=== PATIENT | female | born 1970 | race Two or more races ===

== ENCOUNTER 2023-07-14 05:27 | Emergency (ER) | payer MEDICAID, OTHER ==
[~2023-07-14] VITALS: Ht 175.3 cm; Wt 81.6 kg
[2023-07-14] MEDS ORDERED: diphenhydrAMINE HCL 50 MG/ML VIAL ONE (06:17)
[2023-07-14] MEDS ORDERED: PROCHLORPERAZINE EDISYLATE 10 MG/2 ML VIAL ONE ×2 (06:18→06:20)
[2023-07-14] MEDS ORDERED: ACETAMINOPHEN ES 500 MG TABLET ONE (06:20)
[2023-07-14] MEDS: IV NS 0.9% 1,000 ML BAG IV ONE (06:42)
[2023-07-14] MEDS: PROCHLORPERAZINE EDISYLATE 10 MG/2 ML VIAL IVP ONE (06:42)
[2023-07-14] MEDS: ACETAMINOPHEN ES 500 MG TABLET PO ONE (06:42)
[2023-07-14] MEDS: diphenhydrAMINE HCL 50 MG/ML VIAL IV ONE (06:42)
[2023-07-14 09:43] VITALS: BP 110/66; TEMP 98.6; O2SAT 95
== END 2023-07-14 09:44 ==
LOC: ER 05:32
DX: R51.9 Headache, unspecified (principal); D49.6 Neoplasm of unspecified behavior of brain
CPT/HCPCS: 99285; 96374; 70450; 96361; 96375; J0780 ×2; J1200

== ENCOUNTER 2023-07-20 10:07 | Emergency (ER) | payer MEDICAID ==
[~2023-07-20] VITALS: Ht 165.1 cm; Wt 74.4 kg
[2023-07-20 10:32] VITALS: BP 120/81; TEMP 98.5; O2SAT 100
[2023-07-20] MEDS ORDERED: ONDANSETRON HCL/PF 4 MG/2 ML VIAL ONE (10:42)
[2023-07-20] MEDS ORDERED: MORPHINE SULFATE INJ 4 MG/ML DISP.SYRIN ONE (10:42)
[2023-07-20] MEDS: MORPHINE SULFATE INJ 2 MG/ML DISP.SYRIN IV ONE (10:44)
[2023-07-20] MEDS: ONDANSETRON HCL/PF 4 MG/2 ML VIAL IV ONE (10:44)
== END 2023-07-20 13:49 ==
LOC: ER 10:29
DX: I82.401 Acute embolism and thrombosis of unspecified deep veins of right lower extremity (principal)
CPT/HCPCS: 99284; 96374; 96375; J2270; J2405

== ENCOUNTER 2023-11-04 12:35 | Emergency (ER) | payer MEDICAID ==
[~2023-11-04] VITALS: Ht 165.1 cm; Wt 72.6 kg
[2023-11-04] MEDS ORDERED: ONDANSETRON HCL/PF 4 MG/2 ML VIAL ONE (13:35)
[2023-11-04] MEDS: ONDANSETRON HCL/PF 4 MG/2 ML VIAL IVP ONE (13:41)
[2023-11-04] MEDS: IV NS 0.9% 1,000 ML BAG IV ONE ×2 (13:41→15:53)
[2023-11-04 13:50] LABS: HEMOGLOBIN 14.8 g/dL (11.5-14.8); LYMPHOCYTES # (AUTO) 1.3 K/uL (0.8-4.8); MONOCYTES # (AUTO) 0.3 K/uL (0.1-1.30); NEUTROPHILS % (AUTO) 73.2 % (43.0-81.0); WHITE BLOOD COUNT (AUTO) 6.2 K/uL (4.3-11.0)
[2023-11-04 13:54] LABS: BASOPHILS % (AUTO) 0.1 % (0.0-2.0); EOSINOPHILS % (AUTO) 0.3 % (0.0-6.0); HEMATOCRIT 42 % (33-45); LYMPHOCYTES % (AUTO) 21.2 % (20.0-44.0); MEAN CORPUSCULAR HEMOGLOBIN 32 PG (26.0-33.0); MEAN CORPUSCULAR HGB CONC 35 g/dl (31.0-36.0); MEAN CORPUSCULAR VOLUME 92 fL (82-100); MONOCYTES % (AUTO) 5.2 % (2.0-12.0); NEUTROPHILS # (AUTO) 4.5 K/uL (1.8-8.9); PLATELET COUNT (AUTO) 173 K/uL (150-450); RED BLOOD CELL COUNT(AUTO) 4.61 MIL/uL (4.0-5.2); RED CELL DISTRIBUTION WIDTH 16.4 % (11.5-15.0)
[2023-11-04 14:12] LABS: CALCIUM, SERUM 9.1 mg/dL (8.5-10.1); CARBON DIOXIDE 28 mmol/L (21-32); CHLORIDE 94 mmol/L (98-107); CREATININE 0.4 mg/dL (0.6-1.3); GLUCOSE 108 mg/dL (74-106); POTASSIUM 3.7 mmol/L (3.5-5.1); SODIUM SERUM 132 mmol/L (136-145); UREA NITROGEN, BLOOD 6 mg/dL (7-18)
[2023-11-04 14:13] LABS: SERUM AMMONIA 26 umol/L (11-32)
[2023-11-04 14:20] LABS: LACTIC ACID 1.8 mmol/L (0.4-2.0)
[2023-11-04 14:23] LABS: APPEARANCE,URINE TURBID (CLEAR); BILIRUBIN,URINE NEGATIVE (NEGATIVE); BLOOD, URINE NEGATIVE Ery/uL (NEGATIVE); COLOR,URINE YELLOW (YELLOW); KETONES,URINE NEGATIVE (NEGATIVE); LEUKOCYTE ESTERASE ,URINE 1+ (NEGATIVE); NITRITE, URINE NEGATIVE (NEGATIVE); PH,URINE 7.5 (5.0-8.0); PROTEIN,URINE NEGATIVE (NEGATIVE); UGLUCOSE NEGATIVE (NEGATIVE)
[2023-11-04 14:26] LABS: ALANINE AMINOTRANSFERASE 68 U/L (12-78); ALBUMIN 3.1 g/dL (3.4-5.0); ALKALINE PHOSPHATASE 252 U/L (46-116); ASPARTATE AMINOTRANSFERASE 13 U/L (15-37); BILIRUBIN,DIRECT 0.3 mg/dL (0.0-0.2); BILIRUBIN,TOTAL 0.7 mg/dL (0.2-1.0); TOTAL PROTEIN, SERUM 7.6 g/dL (6.4-8.2)
[2023-11-04 14:29] LABS: ALCOHOL, BLOOD < 3 mg/dL (0-10); SALICYLATE 0.2 mg/dL (2.8-20.0)
[2023-11-04 14:30] LABS: ADD URINE CULTURE YES; BACTERIA,URINE Few /HPF (None Seen); URINE AMORPHOUS PHOSPHATES Many /HPF (None Seen)
[2023-11-04 14:32] LABS: RBC,URINE 0-2 /HPF (0-2); SQUAMOUS EPITHELIAL CELL,UR Few /HPF (None Seen)
[2023-11-04 14:59] LABS: AMPHETAMINE, URINE NEGATIVE (NEGATIVE); BARBITURATE, URINE NEGATIVE (NEGATIVE); BENZODIAZEPINE, URINE NEGATIVE (NEGATIVE); CANNABINOID, URINE NEGATIVE (NEGATIVE); COCCAINE, URINE NEGATIVE (NEGATIVE); OPIATE, URINE NEGATIVE (NEGATIVE); PHENCYCLIDINE SCREEN,URINE NEGATIVE (NEGATIVE)
[2023-11-04] MEDS ORDERED: CEFTRIAXONE 1GM BAG (ER ONLY) 50 ML IV ONE (15:52)
[2023-11-04] MEDS: CEFTRIAXONE 1 G in IV D5W 50 ML IV ONE (15:54)
[2023-11-05 01:49] VITALS: BP 135/62; TEMP 98.2; O2SAT 95
== END 2023-11-05 01:49 | disposition short-term general hospital (02) ==
LOC: ER 12:40
DX: G93.40 Encephalopathy, unspecified (principal); N39.0 Urinary tract infection, site not specified; E87.1 Hypo-osmolality and hyponatremia; Z86.73 Personal history of transient ischemic attack (TIA), and cerebral infarction without residual deficits; Z85.841 Personal history of malignant neoplasm of brain; Z98.890 Other specified postprocedural states; Z20.822 Contact with and (suspected) exposure to COVID-19
CPT/HCPCS: 99285; 96365; 96361; 96375; 93005; 71045; 70450; 82140; 85025; 80048; 87040 ×2; 87086; 83605; 80076; 81001; 36415; 84443; 84484; 82962; 87426; 80320; 80307; J2405; J7030 ×2; J0696; G0480; J7060